=== PATIENT | male | born 1970 | race Caucasian/White ===

== ENCOUNTER 2020-08-06 08:35 | Outpatient (CLI) | payer OTHER, SELFPAY ==
--- NOTE | ~2020-08-06 | XR_ITS ---
EXAMINATION: XR chest 2V EXAM DATE: 08/06/2020 09:49 INDICATION: Seasonal allergic rhinitis, chronic cough and wheezing. TECHNIQUE: Frontal and lateral projections of the chest obtained and reviewed. There is no prior cailin dy for comparison. FINDINGS: The lungs are clear. There are no pleural effusions. The cardiomediastinal silhouette is within normal limits. There is no pneumothorax suspected. The bones and soft tissues are unremarkab le. IMPRESSION: No acute cardiopulmonary findings. Reviewed, dictated and finalized at location B.
--- NOTE | 2020-08-10 13:24 | WPDPFTINT ---
PFT Interpretation PFT Interpretation: This PFT met all criteria for ATS standards and reproducibility FEV/FVC post bronchodilator 75% FEV1 86% FVC 85% FEF 25-75% was 66% Unfortunately a bronchodilator challenge was not given TLC 95% RV 102% RV/TLC 34% DLCO 82% when adjusted for alveolar volume but not adjusted for hemoglobin Flow volume loops were normal Impression: Normal PFT but cannot rule small airway obstruction or Asthma. Would recommend repeating with bronchodilator challenge and Methacholine Challenge Test if indicated. Clinical correlation is advised.
== END 2020-08-06 08:36 | disposition home or self-care (01) ==
DX: R05 Cough (principal)
CPT/HCPCS: 71046; 94375; 94726; 94729

== ENCOUNTER 2021-04-28 17:38 | Emergency (ER) | payer OTHER, SELFPAY ==
[2021-04-28 17:48] VITALS: BP 123/67; PULSE 80; RESP 16; TEMP 37; O2SAT 98
--- NOTE | 2021-04-28 17:58 | ED.URI ---
HPI - URI/Sore Throat General Chief Complaint: Upper Respiratory Infection Stated Complaint: sinus infection Time Seen by Provider: 04/28/21 17:58 Source: patient and RN notes reviewed History of Present Illness HPI Narrative: Patient is a 50-year-old male who presents the urgent care with complaints of a possible sinus infection. Patient states that he has had a dry cough for approximately 2 years and it seems to have worsened over the last couple months. Patient states that he was placed on doxycycline from his ENT 2 days ago and has had 5 doses since then. Patient states that he has done a lot of testing including CT scans, chest x-rays and scopes, ordered from his PCP, vocational rehab consultant and ENT over the years. Patient states that they cannot figure anything out . Patient states that he has been using his son's nebulizer which seems to help as well as the new medication, trilogy that he has been on for the last couple months. No other acute complaints. Denies of any chest pain. No acute distress noted. Patient aware of the plan of care. Some parts of this dictation were generated by voice recognition software and may contain typographical and/or grammatical inaccuracies. Related Data Home Medications Medication Instructions Recorded Confirmed bupropion HCl 100 mg PO DAILY 04/28/21 04/28/21 doxycycline hyclate 100 mg PO BID 04/28/21 04/28/21 [id number] 1 inh INHALATION DAILY 04/28/21 04/28/21 [Trelegy Ellipta] Allergies Allergy/AdvReac Type Severity Reaction Status Date / Time codeine Allergy Unknown UPSET Verified 04/28/21 17:48 STOMACH levofloxacin Allergy Unknown Anaphylactic Verified 04/28/21 17:48 Shock Review of Systems Review of Systems: Narrative: CONSTITUTIONAL: Denies fever, chills, or sweats. EYES: Denies visual changes, redness, or discharge. ENT: Denies rhinorrhea, congestion, sore throat, or otalgia. CARDIOVASCULAR: Denies chest pain, palpitations, or edema. RESPIRATORY: Reports of a dry cough with intermittent dyspnea during coughing spells GASTROINTESTINAL: Denies abdominal pain, nausea, vomiting, or diarrhea. GENITOURINARY: Denies dysuria or hematuria. SKIN: Denies rash or itching. MUSCULOSKELETAL: Denies back pain, joint pain, or myalgia. NEUROLOGIC: Denies headache, numbness, or weakness. All other systems reviewed are negative, except as documented in HPI. PMFSH Comments At the time of my signature, I reviewed and agree with the nursing past medical, surgical, social, and family history. There is no relevant family history pertinent to the patient complaint. Exam Narrative: Exam Narrative: GENERAL: This is a well-nourished, well-developed patient, in no apparent distress. HEAD: normocephalic, atraumatic. EYES: PERRL. Sclera clear/white. Vision is grossly intact. EARS: External ears normal, auditory canals clear and without drainage, TMs normal without perforation. Hearing grossly intact. NOSE: External nose normal with no obvious nasal discharge, nares without redness, no rhinorrhea. THROAT: Mucous membranes moist, posterior pharynx clear. Mild postnasal drainage NECK: Neck supple CARDIOVASCULAR: Regular rate and rhythm without murmurs, gallops, or rubs. RESPIRATORY: Clear to auscultation. Breath sounds equal bilaterally. No wheezes, rales, or rhonchi. SKIN: warm, intact with no suspicious lesions or rash, good texture and turgor. NEURO: awake, alert, and oriented to person, place and time. There were no obvious focal neurologic abnormalities. EXTREMITIES: No clubbing, cyanosis, or edema. Course Vital Signs Vital signs: Vital Signs Temperature 98.6 F 04/28/21 17:48 Pulse Rate 80 04/28/21 17:48 Respiratory Rate 16 04/28/21 17:48 Blood Pressure 123/67 04/28/21 17:48 Pulse Oximetry 98 04/28/21 17:48 Temperature 98.6 F 04/28/21 18:02 Pulse Rate 80 04/28/21 18:02 Respiratory Rate 16 04/28/21 18:02 Blood Pressure 123/67 04/28/21
[2021-04-28 18:02] VITALS: BP 123/67; PULSE 80; RESP 16; TEMP 37; O2SAT 98
== END 2021-04-28 18:10 | disposition home or self-care (01) ==
PROVIDERS: Emergency Provider Nurse Practitioner Family; PCP Internal Medicine
DX: R05 Cough (principal)
CPT/HCPCS: 99213; G0463